=== PATIENT | male | born 1950 | race Caucasian/White ===

== ENCOUNTER 2023-04-21 10:58 | Outpatient (OUT) | payer SELFPAY | END 2023-04-21 10:59 | disposition home or self-care (01) | LOC: PST 11:00 | PROVIDERS: Visit Provider Otolaryngology | DX: Z01.818 Encounter for other preprocedural examination (principal); H69.83 Other specified disorders of Eustachian tube, bilateral ==

== ENCOUNTER 2023-04-25 10:28 | Day surgery (SDC) | payer MEDICARE, OTHER, SELFPAY ==
[2023-04-25] VITALS (9 sets, daily range): BP systolic 114–135; BP diastolic 64–89; PULSE 54–68; RESP 13–21; TEMP 36.3; O2SAT 95–100; BMI 28.2
--- NOTE | 2023-04-25 | OP_ITS ---
OPERATION DATE: ??04/25/2023 PRIMARY CARE PHYSICIAN:? Dash Sauer D.O. SURGEON:? Tessa Sullivan M.D. PREOPERATIVE DIAGNOSIS:? Eustachian tube dysfunction and otic barotrauma. POSTOPERATIVE DIAGNOSIS: ?Eustachian tube dysfunction and otic barotrauma. PROCEDURE: ?Bilateral myringotomy and tubes with microdissection, placement of T-tubes. ANESTHESIA:? General mask. COMPLICATIONS:? None. FINDINGS:? Bilateral dry middle ears with a left anteromedial external auditory canal bony exostosis. INDICATIONS:? 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 PROCEDURE:? Patient identified in the holding area and taken back to the OR where he was placed in the supine position.? After induction of general anesthesia, the right ear was approached with the otomicroscope.? Cerumen cleaned from the canal using a cerumen curette and an anterior radial myringotomy was performed.? A modified Dawit?s T-tube was folded, inserted through the myringotomy and opened in the middle ear using microdissection.? Attention was then turned to the left ear.? The left ear again was approached with the otomicroscope, with cerumen cleaned from the canal using a cerumen curette.? Patient had a bony exostosis of the anteromedial external auditory canal, which obstructed access to the anterior tympanic membrane.? Therefore, an inferior radial myringotomy was performed and a modified Dawit?s T-tube was folded, inserted through the myringotomy and opened in the middle using microdissection.? Patient was then awakened and taken to the recovery room in good condition. CC:? Domingo Josue D.O. ? Anesthesiologist ? [facility]
[2023-04-25] MEDS: LACTATED RINGER'S SOLUTION 1,000 ML 50 ML IV (11:00)
--- NOTE | 2023-04-25 12:11 | PC.NURSE ---
ORAL AIRWAY AND OXYGEN DISCONTNUED AT 1205
== END 2023-04-25 12:55 | disposition home or self-care (01) ==
PROVIDERS: PCP Family Medicine; Visit Provider Otolaryngology
PROC: (CPT 69436; principal; 2023-04-25 11:30)
DX: H69.83 Other specified disorders of Eustachian tube, bilateral (principal); T70.0XXA Otitic barotrauma, initial encounter; H61.812 Exostosis of left external canal; I10 Essential (primary) hypertension; C61 Malignant neoplasm of prostate; Z79.01 Long term (current) use of anticoagulants; C43.9 Malignant melanoma of skin, unspecified; I25.10 Atherosclerotic heart disease of native coronary artery without angina pectoris; I48.0 Paroxysmal atrial fibrillation; Z87.891 Personal history of nicotine dependence; K21.9 Gastro-esophageal reflux disease without esophagitis; E78.00 Pure hypercholesterolemia, unspecified; Z90.79 Acquired absence of other genital organ(s); Z79.82 Long term (current) use of aspirin; Z79.899 Other long term (current) drug therapy; N40.1 Benign prostatic hyperplasia with lower urinary tract symptoms; Z95.5 Presence of coronary angioplasty implant and graft
CPT/HCPCS: 69436; J2704